=== PATIENT | male | born 1960 | race Caucasian/White ===

== ENCOUNTER 2017-07-07 14:48 | Emergency (ER) | payer BC, OTHER ==
[~2017-07-07] VITALS: Ht 177.8 cm; Wt 75.0 kg
[~2017-07-07 14:48] MED LIST: DEXT10CA9 PO; EXCETAB PO
[2017-07-07 14:50] VITALS: BP 170/95; PULSE 95; RESP 16; TEMP 97.9; O2SAT 99
--- NOTE | 2017-07-07 14:58 | PD ---
HPI Chief Complaint: Chest Pain Time Seen by Provider: 14:57 Travel History International Travel<30 days: No Contact w/Intl Traveler<30days: No Traveled to known affect area: No History of Present Illness HPI 56-year-old male presents Department with complaints of tachycardia and chest pressure. Patient states this morning he rode his bicycle, Mowed his lawn, and then attempted to give blood this morning. Patient states when he went to give blood it was noted that his heart rate was 110, and he developed some chest pressure when they said they couldn't take his blood because of his heart rate. Blood pressure at that time was 97/60. Patient has continued to complain of mild chest pressure since that time. His heart rate has remained in the low 100's, as it was monitored by his with her O2 sat device. Patient takes no medications other than aspirin, Kate, and vitamin C. He has no previous cardiac history although it runs in his family. Patient states he was seen approximately 2 years ago here for similar complaints and had a stress test which was normal. Current complaints of chest tightness or pressure which is about a 1-2 out of 10. He is allergic to penicillin. PFSH Past Medical History High Cholesterol: Yes Past Surgical History Other Surgery: Yes (SACRUM FUSION) Social History Alcohol Use: Yes (1 BEER DAILY) Tobacco Use: No Substance Use: No Allergies-Medications (Allergen,Severity, Reaction): Coded Allergies: penicillin G (Unverified Allergy, Severe, EYES SWOLLEN, 07/07/17) Reported Meds & Prescriptions Reported Meds & Active Scripts Active Reported Kate Allergy (Fexofenadine HCl) 60 Mg Tab 60 Mg PO DAILY Vitamin C (Ascorbic Acid) 250 Mg Chew 500 Mg CHEW BID Excedrin Migraine Caplet (Aspirin/Acetaminophen/Caffeine) 250 Mg-250 Mg-65 Mg Tablet 1 Tab PO Q6HR PRN Review of Systems Except as stated in HPI: all other systems reviewed are Neg General / Constitutional: No: Fever Eyes: No: Visual changes HENT: No: Headaches Cardiovascular: Positive: Chest Pain or Discomfort, Tachycardia (see history present illness.), No: Diaphoresis, Syncope, Dyspnea on exertion Respiratory: No: Shortness of Breath Gastrointestinal: No: Abdominal Pain Genitourinary: No: Dysuria Musculoskeletal: No: Pain Skin: No Rash Neurologic: No: Weakness Psychiatric: No: Depression Endocrine: No: Polydipsia Hematologic/Lymphatic: No: Easy Bruising Physical Exam Narrative GENERAL: Patient appears mildly anxious but otherwise in no acute distress. SKIN: Warm and dry. Normal color. Normal turgor. HEAD: Atraumatic. Normocephalic. EYES: Pupils equal and round. No scleral icterus. No injection or drainage. ENT: No nasal bleeding or discharge. Mucous membranes pink and moist. Pharynx is clear. Airway is patent. NECK: Trachea midline. Supple. CARDIOVASCULAR: Regular rate and rhythm. Rate slightly elevated at 90 bpm. No murmurs gallops or rubs appreciated. RESPIRATORY: No accessory muscle use. Clear to auscultation. Breath sounds equal bilaterally. MUSCULOSKELETAL: Extremities without clubbing, cyanosis, or edema. No obvious deformities. NEUROLOGICAL: Awake and alert. No obvious cranial nerve deficits. Motor grossly within normal limits. Five out of 5 muscle strength in the arms and legs. Normal speech. PSYCHIATRIC: Appropriate mood and affect; insight and judgment normal. Data Data Last Documented VS Vital Signs Date Time Temp Pulse Resp B/P (MAP) Pulse Ox O2 Delivery O2 Flow Rate FiO2 07/07/17 15:10 84 20 100 Room Air 07/07/17 15:08 07/07/17 14:50 97.9 Orders Orders Electrocardiogram (07/07/17 15:05) Ckmb (Isoenzyme) Profile (07/07/17 15:05) Complete Blood Count With Diff (07/07/17 15:05) Comprehensive Metabolic Panel (07/07/17 15:05) Magnesium (Mg) (07/07/17 15:05) Prothrombin Time / Inr (Pt) (07/07/17 15:05) Act Partial Throm Time (Ptt) (07/07/17 15:05) Troponin I (07/07/17 15:05) Chest, Single Ap (07/07/17 15:05) Ecg Monitoring (07/07/17 15:05) Bilateral Bp Monitoring (07/07/17 15:05) Iv Access Insert/Monitor (07/07/17 15:05) Oximetry (07/07/17 15:05) Oxygen Administration (07/07/17 15:05) Aspirin Chew (Aspirin Chew) (07/07/17 15:15) Sodium Chloride 0.9% Flush (Ns Flush) (07/07/17 15:15) Sodium Chlorid 0.9% 500 Ml Inj (Ns 500 M (07/07/17 15:15) CKMB (07/07/17 15:08) CKMB% (07/07/17 15:08) Labs Laboratory Tests Test 07/07/17 15:08 White Blood Count 8.3 TH/MM3 Red Blood Count 4.79 MIL/MM3 Hemoglobin 13.9 GM/DL Hematocrit 41.4 % Mean Corpuscular Volume 86.4 FL Mean Corpuscular Hemoglobin 29.1 PG Mean Corpuscular Hemoglobin Concent 33.7 % Red Cell Distribution Width 13.4 % Platelet Count 247 TH/MM3 Mean Platelet Volume 7.5 FL Neutrophils (%) (Auto) 69.2 % Lymphocytes (%) (Auto) 20.2 % Monocytes (%) (Auto) 8.7 % Eosinophils (%) (Auto) 1.5 % Basophils (%) (Auto) 0.4 % Neutrophils # (Auto) 5.7 TH/MM3 Lymphocytes # (Auto) 1.7 TH/MM3 Monocytes # (Auto) 0.7 TH/MM3 Eosinophils # (Auto) 0.1 TH/MM3 Basophils # (Auto) 0.0 TH/MM3 CBC Comment DIFF FINAL Differential Comment Prothrombin Time 10.1 SEC Prothromb Time International Ratio 0.9 RATIO Activated Partial Thromboplast Time 24.6 SEC Blood Urea Nitrogen 20 MG/DL Creatinine 1.20 MG/DL Random Glucose 97 MG/DL Total Protein 7.2 GM/DL Albumin 3.8 GM/DL Calcium Level 9.0 MG/DL Magnesium Level 2.1 MG/DL Alkaline Phosphatase 74 U/L Aspartate Amino Transf (AST/SGOT) 25 U/L Alanine Aminotransferase (ALT/SGPT) 32 U/L Total Bilirubin 0.3 MG/DL Sodium Level 141 MEQ/L Potassium Level 3.9 MEQ/L Chloride Level 106 MEQ/L Carbon Dioxide Level 26.4 MEQ/L Anion Gap 9 MEQ/L Estimat Glomerular Filtration Rate 62 ML/MIN Total Creatine Kinase 106 U/L Troponin I LESS THAN 0.02 NG/ML MDM Medical Decision Making Medical Screen Exam Complete: Yes Emergency Medical Condition: Yes Differential Diagnosis Cardiac arrhythmia. Chest pressure. Cardiac syndrome. Anxiety. Narrative Course Patient is medically stable at time of exam. EKG is performed showing a sinus rhythm with sinus arrhythmia. This showed to have 75 bpm. This was reviewed with Dr. Patel. Cardiac labs ordered per protocol. Patient is given 324 mg chewable aspirin 1. Patient is given 500 mL of normal saline bolus. Chest x-ray is unremarkable for acute process per radiologist. CBC is unremarkable. CMP unremarkable except BUN of 20, GFR of 62 troponin is reassuring at less than 0.02. Coagulation studies are normal. Patient is discussed with Dr. Patel who feels the patient is stable for discharge. Patient should rest and take it easy, and follow-up with a local primary care physician as discussed. Diagnosis Primary Impression: Atypical chest pain Referrals: [facility] Patient Instructions: Chest Pain (ED), General Instructions Additional Instructions: Chest x-ray is unremarkable for acute process per radiologist. CBC is unremarkable. CMP unremarkable except BUN of 20, GFR of 62 troponin is reassuring at less than 0.02. Coagulation studies are normal. Patient is discussed with Dr. Patel who feels the patient is stable for discharge. Patient should rest and take it easy, and follow-up with a local primary care physician as discussed. Med/Other Pt SpecificInfo: No Meds Exist/No RX given Disposition: 01 DISCHARGE HOME Condition: Stable Jd Aaron Jul 07, 2017 14:58
[2017-07-07] MEDS ORDERED: ALLE60TA PO (15:05)
[2017-07-07] MEDS ORDERED: EXCETAB30 PO (15:05)
[2017-07-07] MEDS ORDERED: VITA250C3 CHEW (15:05)
[2017-07-07 15:08] VITALS: BP 169/105; PULSE 75; RESP 20; O2SAT 100; O2SAT 99
[2017-07-07] MEDS ORDERED: ASPIRIN 81 MG CHEW TAB PO ONE (15:15)
[2017-07-07] MEDS ORDERED: SODIUM CHLORIDE 0.9% FLUSH 10 ML FLUSH IVF PRN (15:15)
[2017-07-07] MEDS ORDERED: SODIUM CHLORID 0.9% 500 ML INJ 500 ML IV ONE (15:15)
[2017-07-07 15:41] LABS: AUTOMATED NEUTROPHIL # 5.7 TH/MM3 (1.8-7.7); BASOPHIL % 0.4 % (0.0-2.0); EOSINOPHIL # 0.1 TH/MM3 (0-0.4); EOSINOPHIL % 1.5 % (0.0-4.0); HEMATOCRIT 41.4 % (39.0-51.0); HEMO FLAGS DIFF FINAL; LYMPH % 20.2 % (9.0-44.0); LYMPHOCYTE # 1.7 TH/MM3 (1.0-4.8); MEAN CELL VOLUME 86.4 FL (80.0-100.0); MEAN CORPUSCULAR HEMOGLOBIN 29.1 PG (27.0-34.0); MEAN CORPUSCULAR HGB CONC 33.7 % (32.0-36.0); MONO % 8.7 % (0.0-8.0); NEUT % 69.2 % (16.0-70.0); PLATELET COUNT 247 TH/MM3 (150-450); RED BLOOD COUNT 4.79 MIL/MM3 (4.50-5.90); RED CELL DISTRIBUTION WIDTH 13.4 % (11.6-17.2); WHITE BLOOD COUNT 8.3 TH/MM3 (4.0-11.0)
[2017-07-07 15:52] LABS: APTT (PATIENT) 24.6 SEC (24.3-30.1); INTERNATIONAL NORMALIZED RATIO 0.9 RATIO; PROTHROMBIN TIME - PATIENT 10.1 SEC (9.8-11.6)
--- NOTE | 2017-07-07 15:54 | RADRPT ---
EXAM DATE/TIME: 07/07/2017 15:27 [place] COMPARISON: CHEST SINGLE AP, November 30, 2013, 10:18. INDICATIONS : Chest pain. MEDICAL HISTORY : None. SURGICAL HISTORY : None. ENCOUNTER: Initial ACUITY: 1 day PAIN SCORE: 6/10 LOCATION: Bilateral chest FINDINGS: A single view of the chest demonstrates the lungs to be symmetrically aerated without evidence of mas s, infiltrate or effusion. The cardiomediastinal contours are unremarkable. Osseous structures are intact. CONCLUSION: No acute disease. Judson Acosta MD FACR on July 07, 2017 at 15:52 Board Certified Radiologist. This report was verified electronically.
[2017-07-07 15:59] LABS: ALT (GPT) 32 U/L (12-78); ANION GAP 9 MEQ/L (5-15); AST (GOT) 25 U/L (15-37); BICARBONATE 26.4 MEQ/L (21.0-32.0); BLOOD UREA NITROGEN 20 MG/DL (7-18); CHLORIDE 106 MEQ/L (98-107); GLOMERULAR FILTRATION RATE 62 ML/MIN (>89); MAGNESIUM 2.1 MG/DL (1.5-2.5); POTASSIUM 3.9 MEQ/L (3.5-5.1); SODIUM (NA) 141 MEQ/L (136-145)
[2017-07-07 16:03] LABS: ALKALINE PHOSPHATASE 74 U/L (45-117); CREATINE KINASE 106 U/L (39-308); TOTAL BILIRUBIN ADULT 0.3 MG/DL (0.2-1.0)
[2017-07-07 16:15] LABS: CKMB 1.2 NG/ML (0.5-3.6)
[2017-07-07 16:58] VITALS: BP 141/70
--- NOTE | 2017-07-07 17:07 | PD ---
Data Data Last Documented VS Vital Signs Date Time Temp Pulse Resp B/P (MAP) Pulse Ox O2 Delivery O2 Flow Rate FiO2 07/07/17 16:58 77 141/70 (93) 100 07/07/17 15:10 20 Room Air 07/07/17 14:50 97.9 Orders Orders Electrocardiogram (07/07/17 15:05) Ckmb (Isoenzyme) Profile (07/07/17 15:05) Complete Blood Count With Diff (07/07/17 15:05) Comprehensive Metabolic Panel (07/07/17 15:05) Magnesium (Mg) (07/07/17 15:05) Prothrombin Time / Inr (Pt) (07/07/17 15:05) Act Partial Throm Time (Ptt) (07/07/17 15:05) Troponin I (07/07/17 15:05) Chest, Single Ap (07/07/17 15:05) Ecg Monitoring (07/07/17 15:05) Bilateral Bp Monitoring (07/07/17 15:05) Iv Access Insert/Monitor (07/07/17 15:05) Oximetry (07/07/17 15:05) Oxygen Administration (07/07/17 15:05) Aspirin Chew (Aspirin Chew) (07/07/17 15:15) Sodium Chloride 0.9% Flush (Ns Flush) (07/07/17 15:15) Sodium Chlorid 0.9% 500 Ml Inj (Ns 500 M (07/07/17 15:15) CKMB (07/07/17 15:08) CKMB% (07/07/17 15:08) Labs Laboratory Tests Test 07/07/17 15:08 White Blood Count 8.3 TH/MM3 Red Blood Count 4.79 MIL/MM3 Hemoglobin 13.9 GM/DL Hematocrit 41.4 % Mean Corpuscular Volume 86.4 FL Mean Corpuscular Hemoglobin 29.1 PG Mean Corpuscular Hemoglobin Concent 33.7 % Red Cell Distribution Width 13.4 % Platelet Count 247 TH/MM3 Mean Platelet Volume 7.5 FL Neutrophils (%) (Auto) 69.2 % Lymphocytes (%) (Auto) 20.2 % Monocytes (%) (Auto) 8.7 % Eosinophils (%) (Auto) 1.5 % Basophils (%) (Auto) 0.4 % Neutrophils # (Auto) 5.7 TH/MM3 Lymphocytes # (Auto) 1.7 TH/MM3 Monocytes # (Auto) 0.7 TH/MM3 Eosinophils # (Auto) 0.1 TH/MM3 Basophils # (Auto) 0.0 TH/MM3 CBC Comment DIFF FINAL Differential Comment Prothrombin Time 10.1 SEC Prothromb Time International Ratio 0.9 RATIO Activated Partial Thromboplast Time 24.6 SEC Blood Urea Nitrogen 20 MG/DL Creatinine 1.20 MG/DL Random Glucose 97 MG/DL Total Protein 7.2 GM/DL Albumin 3.8 GM/DL Calcium Level 9.0 MG/DL Magnesium Level 2.1 MG/DL Alkaline Phosphatase 74 U/L Aspartate Amino Transf (AST/SGOT) 25 U/L Alanine Aminotransferase (ALT/SGPT) 32 U/L Total Bilirubin 0.3 MG/DL Sodium Level 141 MEQ/L Potassium Level 3.9 MEQ/L Chloride Level 106 MEQ/L Carbon Dioxide Level 26.4 MEQ/L Anion Gap 9 MEQ/L Estimat Glomerular Filtration Rate 62 ML/MIN Total Creatine Kinase 106 U/L Creatine Kinase MB 1.2 NG/ML Troponin I LESS THAN 0.02 NG/ML [facility] Supervised Visit with DEON: Yes Narrative Course The history, exam, and medical decision-making in the associated mid-level provider note were completed with my assistance. I reviewed and agree with the findings presented. I attest that I had a [id number] encounter with the patient on the same day, and personally performed and documented my assessment and findings in the medical record. *My assessment and Findings: Otherwise healthy 56 year-old woman who developed some vague chest discomfort after he was told that he cannot in a bloodless) blood pressure little bit high. Blood pressures normally within expected range it is. He does not have a history of heart disease. He had a stress test a couple years ago that was normal. He does not have any chest pain or pressure physical activity. He weighed whacked in both the lawn this morning. He denies any symptoms. He has no symptoms now. He is significantly improved now. Initial workups unremarkable. I think he is low risk and can follow up as an outpatient. Counseled him to keep a log of his blood pressures for follow-up with his primary physician. Diagnosis Primary Impression: Atypical chest pain Referrals: [facility] OB Patient Instructions: General Instructions, Chest Pain (ED) Departure Forms: Tests/Procedures Additional Instruction: Chest x-ray is unremarkable for acute process per radiologist. CBC is unremarkable. CMP unremarkable except BUN of 20, GFR of 62 troponin is reassuring at less than 0.02. Coagulation studies are normal. Patient is discussed with Dr. Patel who feels the patient is stable for discharge. Patient should rest and take it easy, and follow-up with a local primary care physician as discussed. Disposition: 01 DISCHARGE HOME Condition: Stable eSrge Patel MD Jul 07, 2017 17:07
--- NOTE | 2017-07-07 17:11 | EKG ---
Date Performed: 07/07/2017 Time Performed: 14:57:22 PTAGE: 56 years EKG: Sinus rhythm WITH SINUS ARRHYTHMIA NORMAL ECG PREVIOUS TRACING : 11/30/2013 16.13 DOCTOR: Serge Juarez Interpretating Date/Time 07/07/2017 17:08:54
== END 2017-07-07 16:59 | disposition home or self-care (01) ==
LOC: NEPC 14:48
DX: R07.89 Other chest pain (principal); R00.0 Tachycardia, unspecified
CPT/HCPCS: 71010; 80053; 82550; 82552; 83735; 84484; 85025; 85610; 85730; 93005; 96360; 99285; J7040